=== PATIENT | male | born 1975 | race Caucasian/White ===

== ENCOUNTER 2019-04-25 15:26 | Emergency (ER) | payer BC, OTHER ==
[2019-04-25] MEDS ORDERED: Nitroglycerin 0.4 MG Tab.SL SL PRN (15:31)
[2019-04-25] MEDS ORDERED: Aspirin 81 MG Tab.Chew PO ONE (15:31)
[2019-04-25] MEDS ORDERED: Ondansetron 4 MG/2 ML SDV IVPUSH ONE (15:37)
[2019-04-25] MEDS ORDERED: Sodium Chloride 0.9% 1,000 ML IV ONE (15:47)
--- NOTE | 2019-04-25 15:52 | EDM.PDOC ---
ED HPI GENERAL MEDICAL PROBLEM - General Chief Complaint: Chest Pain Stated Complaint: CHEST PAIN Time Seen by Provider: 04/25/19 15:30 Source of Information: Reports: Patient, Family History Limitations: Reports: No Limitations - History of Present Illness INITIAL COMMENTS - FREE TEXT/NARRATIVE: has been ill for the past 3-4 days with cough , fever yesterday today developed chest pain , retrosternal , got worse and he was not able to breath well was diaphoretic with epigastric/ chest pain feels dizzy was with mother who brought him in had fever yesterday and had to take tylenol and ibuprofen has been coughing also returned from [place] about one month ago goes to the [employer] : may have caught flu symptoms from there chest pain seemed to be getting better before he was given NTG SL Onset: Sudden Onset Date: 04/25/19 Onset Time: 13:10 Duration: Getting Worse Location: Reports: Chest, Upper Extremity, Left Quality: Reports: Dull Severity: Moderate Worsens with: Reports: Breathing Context: Reports: Exercise Associated Symptoms: Reports: Chest Pain, Shortness of Breath Chest Pain Score (Numeric/FACES): 4 - Related Data Allergies Allergy/AdvReac Type Severity Reaction Status Date / Time No Known Allergies Allergy Verified 04/25/19 15:35 Home Meds: Home Meds Benzonatate [Tessalon Perle] 100 mg PO TID #30 capsule 04/25/19 [Rx] Lisinopril/Hydrochlorothiazide [Lisinopril-Hctz 10-12.5 mg Tab] 1 each PO DAILY #30 tablet 04/25/19 [Rx] Past Medical History Gastrointestinal History: Reports: GERD - Past Surgical History GI Surgical History: Reports: Colonoscopy ED ROS GENERAL - Review of Systems Review Of Systems: See Below Constitutional: Reports: No Symptoms, Malaise, Weakness, Decreased Appetite HEENT: Reports: No Symptoms Respiratory: Reports: Cough. Denies: Wheezing Cardiovascular: Reports: Chest Pain, Lightheadedness Endocrine: Reports: Fatigue GI/Abdominal: Reports: No Symptoms : Reports: No Symptoms Musculoskeletal: Reports: Arm Pain (bilateral) Skin: Reports: No Symptoms Neurological: Reports: Dizziness, Paresthesia, Tingling Psychiatric: Reports: No Symptoms Hematologic/Lymphatic: Reports: No Symptoms Immunologic: Reports: No Symptoms ED EXAM, GENERAL - Physical Exam Exam: See Below Exam Limited By: No Limitations General Appearance: Alert, WD/WN, No Apparent Distress Eye Exam: Bilateral Eye: EOMI Ear Exam: Bilateral Ear: TM Dull Nose: Normal Inspection Throat/Mouth: Normal Inspection, Normal Oropharynx Head: Atraumatic Neck: Supple, Non-Tender Respiratory/Chest: No Respiratory Distress, Lungs Clear, Normal Breath Sounds Cardiovascular: Regular Rate, Rhythm Back Exam: Full Range of Motion Neurological: Alert, Oriented, CN II-XII Intact, Normal Cognition, Normal Gait Course - Vital Signs Last Recorded V/S: Last Vital Signs Temp 36.5 C 04/25/19 15:30 Pulse 71 04/25/19 16:12 Resp 17 04/25/19 16:12 BP 150/97 H 04/25/19 16:24 Pulse Ox 100 04/25/19 16:12 - Orders/Labs/Meds Orders: Active Orders 24 hr Category Date Time Status EKG Documentation Completion [RC] ASDIRECTED Care 04/25/19 15:29 Active Chest 1V Frontal [CR] Stat Exams 04/25/19 15:30 Taken Nitroglycerin [Nitrostat] Med 04/25/19 15:31 Active 0.4 mg SL Q5M PRN Sodium Chloride 0.9% [Normal Saline] 1,000 ml Med 04/25/19 15:47 Active IV .BOLUS EKG 12 Lead [EK] Routine Ther 04/25/19 15:28 Ordered Medication Orders Sodium Chloride (Normal Saline) 1,000 mls @ 999 mls/hr IV .BOLUS ONE Stop: 04/25/19 16:47 Last Admin: 04/25/19 16:20 Dose: 999 mls/hr Nitroglycerin (Nitrostat) 0.4 mg SL Q5M PRN PRN Reason: Chest Pain Last Admin: 04/25/19 15:31 Dose: 0.4 mg Labs: Laboratory Tests 04/25/19 04/25/19 04/25/19 Range/Units 15:40 15:40 15:40 WBC 6.8 (4.5-12.0) X10-3/uL RBC 5.30 (4.30-5.75) x10(6)uL Hgb 15.9 (13.5-17.8) g/dL Hct 46.4 (30.0-51.3) % MCV 87.6 (80-96) fL MCH 30.1 (27.7-33.6) pg MCHC 34.4 (32.2-35.4) g/dL RDW 13.3 (11.5-15.5) % Plt Count 235 (125-369) X10(3)uL MPV 7.8 (7.4-10.4) fL Neut % (Auto) 51.2 (46-82) % Lymph % (Auto) 38.3 H (13-37) % B[place] % (Auto) 6.5 (4-12) % Eos % (Auto) 4 (1.0-5.0) % Baso % (Auto) 1 (0-2) % Neut # (Auto) 3.6 (1.6-8.3) # Lymph # (Auto) 2.6 (0.6-5.0) # B[place] # (Auto) 0.4 (0.0-1.3) # Eos # (Auto) 0.2 (0.0-0.8) # Baso # (Auto) 0.0 (0.0-0.2) # Sodium 140 (135-145) mmol/L Potassium 3.5 (3.5-5.3) mmol/L Chloride 103 (100-110) mmol/L Carbon Dioxide 22 (21-32) mmol/L BUN 14 (7-18) mg/dL Creatinine 1.6 H (0.70-1.30) mg/dL Est Cr Clr Drug Dosing 65.89 mL/min Estimated GFR (MDRD) 47 L (>60) BUN/Creatinine Ratio 8.8 L (9-20) Glucose 109 (80-116) mg/dL Calcium 8.9 (8.6-10.2) mg/dL Magnesium (1.8-2.5) mg/dL Troponin I 16.9 (4.0-60.3) pg/mL 04/25/19 Range/Units 15:40 WBC (4.5-12.0) X10-3/uL RBC (4.30-5.75) x10(6)uL Hgb (13.5-17.8) g/dL Hct (30.0-51.3) % MCV (80-96) fL MCH (27.7-33.6) pg MCHC (32.2-35.4) g/dL RDW (11.5-15.5) % Plt Count (125-369) X10(3)uL MPV (7.4-10.4) fL Neut % (Auto) (46-82) % Lymph % (Auto) (13-37) % B[place] % (Auto) (4-12) % Eos % (Auto) (1.0-5.0) % Baso % (Auto) (0-2) % Neut # (Auto) (1.6-8.3) # Lymph # (Auto) (0.6-5.0) # [place] # (Auto) (0.0-1.3) # Eos # (Auto) (0.0-0.8) # Baso # (Auto) (0.0-0.2) # Sodium (135-145) mmol/L Potassium (3.5-5.3) mmol/L Chloride (100-110) mmol/L Carbon Dioxide (21-32) mmol/L BUN (7-18) mg/dL Creatinine (0.70-1.30) mg/dL Est Cr Clr Drug Dosing mL/min Estimated GFR (MDRD) (>60) BUN/Creatinine Ratio (9-20) Glucose (80-116) mg/dL Calcium (8.6-10.2) mg/dL Magnesium 1.9 (1.8-2.5) mg/dL Troponin I (4.0-60.3) pg/mL Meds: Medications Generic Name Dose Route Start Last Admin Trade Name Freq PRN Reason Stop Dose Admin Sodium Chloride 1,000 mls @ 999 mls/hr 04/25/19 15:47 04/25/19 16:20 Normal Saline IV 04/25/19 16:47 999 mls/hr .BOLUS ONE Administration Nitroglycerin 0.4 mg 04/25/19 15:31 04/25/19 15:31 Nitrostat SL 0.4 mg Q5M PRN Administration Chest Pain Discontinued Medications Generic Name Dose Route Start Last Admin Trade Name Freq PRN Reason Stop Dose Admin Aspirin 324 mg 04/25/19 15:31 04/25/19 15:31 Aspirin PO 04/25/19 15:32 324 mg ONETIME ONE Administration Lisinopril 10 mg 04/25/19 16:17 04/25/19 16:24 Prinivil PO 04/25/19 16:18 10 mg NOW STA Administration Ondansetron HCl 4 mg 04/25/19 15:37 04/25/19 15:42 Zofran IVPUSH 04/25/19 15:38 4 mg ONETIME ONE Administration - Re-Assessments/Exams Free Text/Narrative Re-Assessment/Exam: 04/25/19 16:44 on arrival was diaphoretic but afebrile with tingling in the hand bilaterally and seemingly very hyperactive mild hyperventilation noted given oxygen and he stated symptoms improved had Aspirin, NTG given had EKG and chest xray done and labs reviewed labs with pt : all normal BP remained elevated so was started on lisinopril , will send home on lisinopril/HCTZ Departure - Departure Time of Disposition: 17:00 Disposition: Home, Self-Care 01 Condition: Fair Clinical Impression: Atypical chest pain, Hypertension Prescriptions: Benzonatate [Tessalon Perle] 100 mg PO TID #30 capsule Lisinopril/Hydrochlorothiazide [Lisinopril-Hctz 10-12.5 mg Tab] 1 each PO DAILY #30 tablet Instructions: How to Take Your Blood Pressure, Nonspecific Chest Pain, Easy-to- Read, Preventing Hypertension Referrals: PCP,None [Primary Care Provider] - Forms: ED Department Discharge Sepsis Event Note - Focused Exam Vital Signs: Vital Signs Temp Pulse Resp BP BP Pulse Ox Pulse Ox 04/25/19 16:24 150/97 H 04/25/19 16:12 71 17 151/101 H 100 04/25/19 16:01 72 16 148/87 H 100 04/25/19 15:57 73 16 145/112 H 100 04/25/19 15:44 77 20 157/99 H 100 04/25/19 15:35 100 04/25/19 15:31 168/80 H 04/25/19 15:30 36.5 C 100 21 H 167/98 H 100 Date Exam was Performed: 04/25/19 Time Exam was Performed: 16:43 - My Orders Last 24 Hours: My Active Orders 04/25/19 15:28 EKG 12 Lead [EK] Routine 04/25/19 15:29 EKG Documentation Completion [RC] ASDIRECTED 04/25/19 15:30 Chest 1V Frontal [CR] Stat 04/25/19 15:31 Nitroglycerin [Nitrostat] 0.4 mg SL Q5M PRN 04/25/19 15:47 Sodium Chloride 0.9% [Normal Saline] 1,000 ml IV .BOLUS - Assessment/Plan Last 24 Hours: My Active Orders 04/25/19 15:28 EKG 12 Lead [EK] Routine 04/25/19 15:29 EKG Documentation Completion [RC] ASDIRECTED 04/25/19 15:30 Chest 1V Frontal [CR] Stat 04/25/19 15:31 Nitroglycerin [Nitrostat] 0.4 mg SL Q5M PRN 04/25/19 15:47 Sodium Chloride 0.9% [Normal Saline] 1,000 ml IV .BOLUS
[2019-04-25] MEDS ORDERED: Lisinopril 10 MG Tab PO STA (16:17)
--- NOTE | 2019-04-26 11:07 | CR ---
INDICATION: Chest pain. Shortness of breath. Left arm tingling. Near syncope. CHEST, 1 VIEW: An AP upright portable view of the chest, 04/25/19, was compared with 06/29/08. The heart did not appear enlarged, allowing for relatively poor inspiration and AP positioning. Overlying EKG leads are noted. The aorta is more tortuous than on the previous study. It is still minimally tortuous. An active infiltrate or effusion was not identified. IMPRESSION: No acute process. MTDD
== END 2019-04-25 16:59 | disposition home or self-care (01) ==
LOC: FB.ED 15:26
DX: I10 Essential (primary) hypertension (principal); R07.89 Other chest pain; R06.4 Hyperventilation
CPT/HCPCS: 36415; 71045; 80048; 83735; 84484; 85025; 87804; 93005; 96361; 96374; 99284; 99285; A9270; J2405; J7030